=== PATIENT | male | born 1960 | race Caucasian/White ===

== ENCOUNTER 2020-08-10 12:12 | Emergency (ER) | payer MEDICARE, MEDICAID ==
[~2020-08-10] VITALS: Ht 190.5 cm; Wt 90.9 kg
[2020-08-10] MEDS ORDERED: LORazepam 2 mg/ml vial IV ONE (12:55)
[2020-08-10 13:16] LABS: BASOPHILS # (AUTO) 0.1 X10'3 (0-0.2); BASOPHILS % (AUTO) 0.4 % (0-1); EOSINOPHILS % (AUTO) 0.1 % (0-6); HEMATOCRIT 40.5 % (42.0-52.0); HEMOGLOBIN 13.6 g/dl (14.0-17.9); LYMPHOCYTES # (AUTO) 1.4 X10'3 (1.1-4.8); MEAN CORPUSCULAR HEMOGLOBIN 29.7 PG (27.0-31.0); MEAN CORPUSCULAR HGB CONC 33.6 g/dL (33.0-36.5); MEAN CORPUSCULAR VOLUME 88.6 FL (78-98); MEAN PLATELET VOLUME 10.6 FL (7.4-10.4); MONOCYTES % (AUTO) 8.4 % (2-12); NEUTROPHILS # (AUTO) 9.2 X10'3 (1.8-7.7); NEUTROPHILS % (AUTO) 79.1 % (42-75); PLATELET COUNT 150 X10'3 (140-440); RED BLOOD COUNT 4.57 X10'6 (4.70-6.10); RED CELL DISTRIBUTION WIDTH 13.7 % (11.5-14.5); WHITE BLOOD COUNT 11.7 X10'3 (4.5-11.0)
[2020-08-10] MEDS ORDERED: normal saline 1000ml 1,000 ML IV ONE (13:20)
[2020-08-10 13:27] LABS: ALANINE AMINOTRANSFERASE 121 U/L (12-78); ALBUMIN 3.9 G/DL (3.4-5.0); ALBUMIN/GLOBULIN RATIO 1.4 (1.1-1.5); ALKALINE PHOSPHATASE 43 IU/L (46-116); ANION GAP 14 (8-16); ASPARTATE AMINO TRANSFERASE 236 U/L (10-37); BILIRUBIN,TOTAL 0.9 MG/DL (0.1-1.0); BLOOD UREA NITROGEN 43 MG/DL (7-18); BUN/CREATININE RATIO 25.9 (5.4-32.0); CALCIUM 8.2 MG/DL (8.5-10.1); CHLORIDE 101 MMOL/L (99-107); CREATININE 1.66 MG/DL (0.60-1.10); GLUCOSE 112 MG/DL (70-104); POTASSIUM 3.4 MMOL/L (3.5-5.1); SODIUM 137 MMOL/L (135-145); TOTAL CARBON DIOXIDE 21.9 MMOL/L (24-32); TOTAL PROTEIN 6.6 G/DL (6.4-8.2); eGFR 42 ML/MIN
[2020-08-10] MEDS ORDERED: ATOR20TA66 PO (13:40)
[2020-08-10] MEDS ORDERED: LEVO88TA2 PO (13:40)
[2020-08-10] MEDS ORDERED: OXYC10TA47 PO (13:40)
[2020-08-10] MEDS ORDERED: ALBU8.5H8 INH (13:40)
[2020-08-10] MEDS ORDERED: normal saline 1000ML IV soln IVB ONE (13:55)
[2020-08-10 15:16] VITALS: BP 101/52
== END 2020-08-10 16:06 | disposition home or self-care (01) ==
LOC: ER 12:12
DX: G40.409 Other generalized epilepsy and epileptic syndromes, not intractable, without status epilepticus (principal); E86.0 Dehydration; E03.9 Hypothyroidism, unspecified; Z86.69 Personal history of other diseases of the nervous system and sense organs; Z88.0 Allergy status to penicillin; Z79.899 Other long term (current) drug therapy
CPT/HCPCS: 36415; 71045; 80053; 85025; 96361; 96374; 99284; J2060; J7030

== ENCOUNTER 2023-01-08 16:41 | Inpatient (IN) | payer MEDICARE, MEDICAID ==
[~2023-01-08] VITALS: Ht 182.9 cm; Wt 95.0 kg
[~2023-01-08 16:41] MED LIST: ALBU8.5H17 INH; ATOR20TA66 PO; LEVO88TA2 PO; OXYC10TA47 PO
[2023-01-08] MEDS ORDERED: normal saline 1000ML IV soln IVB ONE ×2 (17:50→19:05)
[2023-01-08] MEDS: buprenorphine/naloxone 8MG-2MG SUBlingual film SL SCH (18:54)
[2023-01-08] MEDS ORDERED: buprenorphine/naloxone 8MG-2MG SUBlingual film SL STA (18:58)
[2023-01-08 18:59] LABS: ALANINE AMINOTRANSFERASE 32 U/L (12-78); ALBUMIN 4.3 G/DL (3.4-5.0); ALBUMIN/GLOBULIN RATIO 1.6 (1.1-1.5); ALKALINE PHOSPHATASE 47 IU/L (46-116); ANION GAP 9 (8-16); ASPARTATE AMINO TRANSFERASE 35 U/L (10-37); BILIRUBIN,TOTAL 0.8 MG/DL (0.1-1.0); BLOOD UREA NITROGEN 11 MG/DL (7-18); BUN/CREATININE RATIO 9.2 (10.0-20.0); CHLORIDE 101 MMOL/L (99-107); CREATININE 1.19 MG/DL (0.60-1.10); GLUCOSE 120 MG/DL (70-104); MAGNESIUM 2.9 MG/DL (1.5-2.4); POTASSIUM 3.4 MMOL/L (3.5-5.1); SODIUM 134 MMOL/L (135-145); eCRCL 70 ML/MIN; eGFR 62 ML/MIN
[2023-01-08 19:00] LABS: MEAN CORPUSCULAR HGB CONC 33.6 g/dL (33.0-36.5)
[2023-01-08 19:04] LABS: BASOPHILS % (AUTO) 0.1 % (0-1); EOSINOPHILS % (AUTO) 0 % (0-6); HEMATOCRIT 41.7 % (42.0-52.0); LYMPHOCYTES # (AUTO) 1.3 X10'3 (1.1-4.8); LYMPHOCYTES % (AUTO) 6.5 % (21-51); MEAN CORPUSCULAR HEMOGLOBIN 29.5 PG (27.0-31.0); MEAN CORPUSCULAR VOLUME 87.6 FL (78-98); MEAN PLATELET VOLUME 10.7 FL (7.4-10.4); MONOCYTES # (AUTO) 0.8 X10'3 (0-0.9); MONOCYTES % (AUTO) 4.2 % (2-12); NEUTROPHILS # (AUTO) 17.8 X10'3 (1.8-7.7); NEUTROPHILS % (AUTO) 89.2 % (42-75); PLATELET COUNT 173 X10'3 (140-440); RED BLOOD COUNT 4.76 X10'6 (4.70-6.10); RED CELL DISTRIBUTION WIDTH 14.7 % (11.5-14.5); WHITE BLOOD COUNT 19.9 X10'3 (4.5-11.0)
[2023-01-08] MEDS ORDERED: diphenhydrAMINE 25mg capsule PO ONE (19:15)
[2023-01-08] MEDS ORDERED: OLANZapine 5mg rapidly disint. tablet PO ONE (19:15)
[2023-01-08 19:23] LABS: CALCIUM 8.8 MG/DL (8.5-10.1)
[2023-01-08] MEDS ORDERED: iohexol 300mg/ml 100ml inj. ONE (20:25)
[2023-01-08] MEDS ORDERED: LORazepam 2 mg/ml vial IM ONE (20:30)
[2023-01-08] MEDS ORDERED: OLANZapine **IM** 10 mg inj. IM ONE (20:30)
[2023-01-08] MEDS ORDERED: diphenhydrAMINE 50 mg/ml inj IM ONE (20:30)
[2023-01-09] MEDS ORDERED: normal saline 1000ML IV soln IV ONE
[2023-01-09] MEDS ORDERED: ringers solution, lacted 1,000 ML IV ONE (00:05)
[2023-01-09 02:03] LABS: CKMB RELATIVE INDEX 0.8 RATIO (0-2.5); CREATINE KINASE MB 8.6 ng/ml (0.3-3.6); THYROID STIMULATING HORMONE 2.72 ulU/ml (0.34-4.50)
[2023-01-09] MEDS ORDERED: GABA-535 PO (02:23)
[2023-01-09 02:27] LABS: CREATINE KINASE 1122 U/L (39-308)
[2023-01-09 03:03] LABS: URINE AMPHETAMINE SCREEN NEGATIVE (Neg); URINE BARBITUATE SCREEN NEGATIVE (Neg); URINE BENZODIAZEPINES SCREEN NEGATIVE (Neg); URINE CANNABINOID SCREEN POSITIVE (Neg); URINE COCAINE SCREEN NEGATIVE (Neg); URINE METHADONE SCREEN NEGATIVE (Neg); URINE OPIATE SCREEN NEGATIVE (Neg); URINE PHENCYCLIDINE SCREEN NEGATIVE (Neg)
[2023-01-09] MEDS ORDERED: aztreonam inj. 1,000 MG in normal saline 100ml IV soln 100 ML IV SCH (03:04)
[2023-01-09] MEDS ORDERED: vancomycin/NS 1 GM ADD-VANTAGE 250 ML IV SCH (03:05)
[2023-01-09 03:18] LABS: BILIRUBIN,URINE NEGATIVE (Neg); CLARITY,URINE CLEAR (Clear); COLOR,URINE YELLOW (Yellow); GLUCOSE, URINE NEGATIVE (Neg); KETONES,URINE 40 mg/dl (Neg); LEUKOCYTE ESTERASE ,URINE NEGATIVE (Neg); NITRITES, URINE NEGATIVE (Neg); OCCULT BLOOD,URINE TRACE-INTACT (Neg); PROTEIN,URINE NEGATIVE (Neg); UROBILINOGEN,URINE 0.2 E.U/dL (0.2-1.0)
[2023-01-09 03:19] LABS: UA COLLECTION TYPE CLN CATCH MIDSTREAM
[2023-01-09] MEDS ORDERED: mag hydrox/Alum hydrox/simeth 30ml oral suspension PO PRN (03:20)
[2023-01-09] MEDS ORDERED: potassium Cl 20 mEq SR tablet PO PRN (03:20)
[2023-01-09] MEDS ORDERED: magnesium 2GM in 50ml NS 50 ML IV PRN (03:20)
[2023-01-09] MEDS ORDERED: ondansetron/PF 4mg/2ml inj IV PRN (03:20)
[2023-01-09] MEDS ORDERED: magnesium hydroxide 30ml (MOM) UD suspension PO PRN (03:20)
[2023-01-09] MEDS ORDERED: magnesium Cl slow-release 64mg tablet PO PRN (03:20)
[2023-01-09] MEDS ORDERED: magnesium 4gm in 100ml NS 100 ML IV PRN (03:20)
[2023-01-09] MEDS ORDERED: potassium Cl 40MEQ/1/2NS 520ml 520 ML IV PRN (03:20)
[2023-01-09 03:36] LABS: BACTERIA,URINE NONE SEEN /HPF (Neg); MUCUS STRANDS NONE SEEN /LPF (Neg); RBC,URINE 0-2 /HPF (0-2); SQUAMOUS EPITHELIAL CELL,UR NONE SEEN /LPF (FEW); WBC,URINE NONE SEEN /HPF (0-4)
[2023-01-09 03:37] LABS: SPERM FEW /HPF (NEGATIVE)
[2023-01-09] MEDS: normal saline 1000ml 1,000 ML IV SCH ×3 (04:39→23:54)
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
--- NOTE | 2023-01-09 05:27 | NUR ---
REFUSED AM VS MD AND CRN AWARE. PT IS ALERT, WITH PINK COLOR NAD NOTED RR EVEN AND NON-LABORED. WILL CONT TO MONITOR.
[2023-01-09 07:44] LABS: MAGNESIUM 1.8 MG/DL (1.5-2.4)
[2023-01-09] MEDS: docusate sod 100mg capsule PO SCH ×2 (08:00→20:00)
[2023-01-09] MEDS ORDERED: buprenorphine/naloxone 8MG-2MG SUBlingual film SL SCH (08:00)
[2023-01-09 08:19] LABS: POTASSIUM 2.8 MMOL/L (3.5-5.1)
--- NOTE | 2023-01-09 08:30 | NUR ---
PT PLACED ON HOSPITAL BED.
[2023-01-09] MEDS: K and/or MAG REPLACEMENT MC SCH ×2 (09:05→20:00)
[2023-01-09] MEDS: gabapentin 400mg capsule PO SCH (09:05)
[2023-01-09] MEDS: atorvastatin 20mg tablet PO SCH (09:05)
[2023-01-09] MEDS: heparin, porcine 5000 units/ml vial SQ SCH ×2 (09:05→21:49)
[2023-01-09] MEDS: levoTHYROXINE 88mcg tablet PO SCH (09:20)
--- NOTE | 2023-01-09 09:20 | NUR ---
PT REFUSING MEDICATIONS HEPARIN AND BUPRENORPHINE. HOSPITALIST DR. RAFAEL QUINN MD CAME TO PT ROOM AND INFORMED OF PT REFUSAL OF MEDS. NO NEW ORDERS.
[2023-01-09] MEDS: acetaminophen 325mg tablet PO PRN ×2 (09:22→23:50)
[2023-01-09] MEDS: buprenorphine/naloxone 8MG-2MG SUBlingual film SL SCH (09:55)
--- NOTE | 2023-01-09 13:05 | NUR ---
Received order for consult. Met with patient in regards to narcatic withdrawl and to see if patient was interested in resources for treatment options. Patient has been taking medication as prescribed by his physican. Patient is unaware to why he is in the hospital and why he was given Suboxone. I spoke with RN and patient was ordered Suboxone by ER Doctor last night. RN looked at his prescribed medicaton and patient is prescribed pain medication. RN is going to speak to Hospitalist to DC Suboxone and cont with home medication.
--- NOTE | 2023-01-09 13:14 | NUR ---
Pts father Eder Jain called and left contact #:
--- NOTE | 2023-01-09 14:50 | NUR ---
LATE ENTRY FOR 904 PT RECEIVED 40 MEQ K-DUR PO PTS K 2.8. SCANNED MED WAS NOT SAVED THUS NOT SHOWN ON EMR.
[2023-01-09] MEDS: potassium Cl 20 mEq SR tablet PO PRN ×2 (14:52→21:49)
--- NOTE | 2023-01-09 16:35 | NUR ---
REPORT ATTEMPTED, WILL CALL BACK IN 10-15MIN TO GIVE REPORT TO CELESTE.
--- NOTE | 2023-01-09 16:51 | NUR ---
Report given to Edwina RN, pt assigned bed 5662c
--- NOTE | 2023-01-09 16:55 | NUR ---
Patient in room ED 13. I have received report from Tori RN and had the opportunity to ask questions and awaiting patient arrival
[2023-01-09 18:40] VITALS: O2SAT 96
--- NOTE | 2023-01-09 18:43 | NUR ---
patient orientated to room, appears calm and compliant. Report given to Manohar AMARO
--- NOTE | 2023-01-09 19:05 | NUR ---
Received pt report from Edwina HERNÁNDEZ and assumed pt care
[2023-01-09] MEDS ORDERED: buprenorphine/naloxone 8MG-2MG SUBlingual film SL ONE (21:25)
[2023-01-09 22:00] VITALS: BP 129/88; PULSE 91; RESP 16; TEMP 100.1; O2SAT 97
[2023-01-10] MEDS: potassium Cl 20 mEq SR tablet PO PRN (02:07)
[2023-01-10 02:28] VITALS: BP 148/72; TEMP 98
[2023-01-10 06:00] VITALS: BP 132/73; PULSE 67; RESP 16; TEMP 98.1; O2SAT 97
[2023-01-10] MEDS ORDERED: vancomycin/NS 1 GM ADD-VANTAGE 250 ML IV SCH ×2 (06:00→20:00)
--- NOTE | 2023-01-10 06:02 | NUR ---
SOFTWARE MANAGER documentation: I have reviewed and agree with assessment performed and documented by MICKEY.
--- NOTE | 2023-01-10 06:15 | NUR ---
Report to Kamryn AMARO
--- NOTE | 2023-01-10 06:25 | NUR ---
Patient in room ORTHO 4009. I have received report from Alicia HERNÁNDEZ and had the opportunity to ask questions and assume patient care.
[2023-01-10 06:32] LABS: BASOPHILS # (AUTO) 0.1 X10'3 (0-0.2); BASOPHILS % (AUTO) 0.4 % (0-1); EOSINOPHILS # (AUTO) 0.1 X10'3 (0-0.9); EOSINOPHILS % (AUTO) 0.7 % (0-6); HEMATOCRIT 32.5 % (42.0-52.0); HEMOGLOBIN 10.9 g/dl (14.0-17.9); LYMPHOCYTES # (AUTO) 2.3 X10'3 (1.1-4.8); LYMPHOCYTES % (AUTO) 19.8 % (21-51); MEAN CORPUSCULAR HEMOGLOBIN 29.8 PG (27.0-31.0); MEAN CORPUSCULAR HGB CONC 33.6 g/dL (33.0-36.5); MEAN CORPUSCULAR VOLUME 88.7 FL (78-98); MEAN PLATELET VOLUME 10.8 FL (7.4-10.4); MONOCYTES % (AUTO) 8.3 % (2-12); NEUTROPHILS # (AUTO) 8.2 X10'3 (1.8-7.7); NEUTROPHILS % (AUTO) 70.8 % (42-75); PLATELET COUNT 117 X10'3 (140-440); RED BLOOD COUNT 3.67 X10'6 (4.70-6.10); RED CELL DISTRIBUTION WIDTH 14.6 % (11.5-14.5); WHITE BLOOD COUNT 11.6 X10'3 (4.5-11.0)
[2023-01-10 06:58] LABS: ALANINE AMINOTRANSFERASE 30 U/L (12-78); ALBUMIN 2.9 G/DL (3.4-5.0); ALBUMIN/GLOBULIN RATIO 1.2 (1.1-1.5); ALKALINE PHOSPHATASE 33 IU/L (46-116); ANION GAP 6 (8-16); ASPARTATE AMINO TRANSFERASE 55 U/L (10-37); BILIRUBIN,TOTAL 0.7 MG/DL (0.1-1.0); BLOOD UREA NITROGEN 9 MG/DL (7-18); BUN/CREATININE RATIO 10.3 (10.0-20.0); CALCIUM 7.2 MG/DL (8.5-10.1); CHLORIDE 104 MMOL/L (99-107); CREATININE 0.87 MG/DL (0.60-1.10); GLUCOSE 87 MG/DL (70-104); MAGNESIUM 1.9 MG/DL (1.5-2.4); SODIUM 133 MMOL/L (135-145); TOTAL CARBON DIOXIDE 23.5 MMOL/L (24-32); TOTAL PROTEIN 5.3 G/DL (6.4-8.2); eCRCL 95 ML/MIN; eGFR 89 ML/MIN
[2023-01-10 07:21] LABS: CREATINE KINASE 4501 U/L (39-308)
[2023-01-10 08:00] VITALS: RESP 16; O2SAT 97
[2023-01-10] MEDS: K and/or MAG REPLACEMENT MC SCH ×2 (08:00→20:00)
[2023-01-10] MEDS: gabapentin 400mg capsule PO SCH (08:06)
[2023-01-10] MEDS: atorvastatin 20mg tablet PO SCH (08:06)
[2023-01-10] MEDS: docusate sod 100mg capsule PO SCH ×2 (08:06→21:11)
[2023-01-10] MEDS: buprenorphine/naloxone 8MG-2MG SUBlingual film SL SCH (08:10)
[2023-01-10] MEDS: heparin, porcine 5000 units/ml vial SQ SCH ×2 (08:10→21:12)
[2023-01-10 08:15] VITALS: RESP 16; O2SAT 97
[2023-01-10] MEDS: levoTHYROXINE 88mcg tablet PO SCH (08:27)
[2023-01-10 10:00] VITALS: BP 143/63; PULSE 83; RESP 16; TEMP 98.3; O2SAT 98
--- NOTE | 2023-01-10 10:49 | NUR ---
Talked to Dr. betts about this patient. She is wanting Dr. Cano to consult on this patient. SHe advised that I call his office and inquire about that. She is ialso wanting a SS consult. She okayed patient to have ensure with meals.
--- NOTE | 2023-01-10 12:15 | NUR ---
PAGER ID: [phone] MESSAGE: [id number]- Bertha Jain- pt states his shoulders really hurt him. No pain meds in emar. Pls advise? Magnus doran [id number]
--- NOTE | 2023-01-10 12:26 | NUR ---
PAGER ID: [phone] MESSAGE: [id number]- Bertha Jain: pt shoulder are painful. Pls advise? RAMONA Harry [phone]
--- NOTE | 2023-01-10 13:37 | NUR ---
Patient dtr Inocencia came to visit her dad and patient agreed that we are able to talk to her regarding his visit. She is not to make any life decisions for him. He will remain in control over any decisions that would need to be made. Patient ex- called and stated that this patient does have seizures and he lives alone. She states that the patient never told his PCP. Patient had seizure two years ago and then had a seizure last year. Patient was diagnosed in [facility] with Schizophrenia. Patient told family that he no longer needs to take his schizophrenia medication. Ex- is concerned for patient. Patient made it clear that he doesn't want us to tell her anything about him.
--- NOTE | 2023-01-10 17:30 | NUR ---
I have reviewed and agree with interventions, assessments, and documentation by Kamryn Vale LVN.
[2023-01-10] MEDS: acetaminophen 325mg tablet PO PRN (17:58)
[2023-01-10] MEDS: lactose-reduced food (Ensure Enlive) - 237ml bottle PO SCH ×2 (18:00→19:00)
--- NOTE | 2023-01-10 18:39 | NUR ---
Problems reprioritized. Patient report given, questions answered & plan of care reviewed with Evette Alas RN.
--- NOTE | 2023-01-10 18:45 | NUR ---
Patient in room ORTHO 4009. I have received report from SELENA AMARO and had the opportunity to ask questions and assume patient care.
[2023-01-10] MEDS: normal saline 1000ml 1,000 ML IV SCH ×2 (19:20→19:30)
[2023-01-10] MEDS: VANCOmycin 1250MG/NS 250ml Bag 250 ML IV SCH (19:37)
[2023-01-10 20:00] VITALS: RESP 16; O2SAT 98
[2023-01-11] VITALS (7 sets, daily range): BP systolic 138–167; BP diastolic 68–88; PULSE 82–87; RESP 12–18; TEMP 97.7–98.7; O2SAT 92–98
[2023-01-11] MEDS: acetaminophen 325mg tablet PO PRN ×3 (03:05→17:50)
[2023-01-11] MEDS: normal saline 1000ml 1,000 ML IV SCH ×3 (05:20→20:08)
[2023-01-11 06:05] LABS: BASOPHILS % (AUTO) 0.4 % (0-1); EOSINOPHILS # (AUTO) 0.1 X10'3 (0-0.9); EOSINOPHILS % (AUTO) 0.6 % (0-6); HEMATOCRIT 31.6 % (42.0-52.0); HEMOGLOBIN 10.7 g/dl (14.0-17.9); LYMPHOCYTES # (AUTO) 1.6 X10'3 (1.1-4.8); LYMPHOCYTES % (AUTO) 16.9 % (21-51); MEAN CORPUSCULAR HEMOGLOBIN 29.8 PG (27.0-31.0); MEAN CORPUSCULAR HGB CONC 33.8 g/dL (33.0-36.5); MEAN PLATELET VOLUME 9.9 FL (7.4-10.4); MONOCYTES # (AUTO) 0.9 X10'3 (0-0.9); MONOCYTES % (AUTO) 9.1 % (2-12); PLATELET COUNT 120 X10'3 (140-440); RED BLOOD COUNT 3.59 X10'6 (4.70-6.10); RED CELL DISTRIBUTION WIDTH 14.2 % (11.5-14.5); WHITE BLOOD COUNT 9.6 X10'3 (4.5-11.0)
--- NOTE | 2023-01-11 06:10 | NUR ---
Patient in room ORTHO 4009. I have received report from Delaney HERNÁNDEZ and had the opportunity to ask questions and assume patient care.
--- NOTE | 2023-01-11 06:13 | NUR ---
Problems reprioritized. Patient report given, questions answered & plan of care reviewed with SELENA AMARO.
[2023-01-11 06:26] LABS: ALANINE AMINOTRANSFERASE 40 U/L (12-78); ALBUMIN 2.8 G/DL (3.4-5.0); ALKALINE PHOSPHATASE 33 IU/L (46-116); ANION GAP 6 (8-16); ASPARTATE AMINO TRANSFERASE 86 U/L (10-37); BILIRUBIN,TOTAL 0.6 MG/DL (0.1-1.0); BLOOD UREA NITROGEN 6 MG/DL (7-18); BUN/CREATININE RATIO 7.1 (10.0-20.0); CALCIUM 7.5 MG/DL (8.5-10.1); CHLORIDE 102 MMOL/L (99-107); CREATININE 0.85 MG/DL (0.60-1.10); GLUCOSE 102 MG/DL (70-104); MAGNESIUM 2.1 MG/DL (1.5-2.4); SODIUM 133 MMOL/L (135-145); TOTAL CARBON DIOXIDE 24.6 MMOL/L (24-32); TOTAL PROTEIN 5.6 G/DL (6.4-8.2); eCRCL 98 ML/MIN; eGFR > 90 ML/MIN
[2023-01-11] MEDS: levoTHYROXINE 88mcg tablet PO SCH (07:42)
[2023-01-11] MEDS: gabapentin 400mg capsule PO SCH (07:42)
[2023-01-11] MEDS: atorvastatin 20mg tablet PO SCH (07:42)
[2023-01-11] MEDS: docusate sod 100mg capsule PO SCH (07:42)
[2023-01-11] MEDS: buprenorphine/naloxone 8MG-2MG SUBlingual film SL SCH (07:43)
[2023-01-11] MEDS: heparin, porcine 5000 units/ml vial SQ SCH ×2 (07:45→19:40)
[2023-01-11] MEDS: K and/or MAG REPLACEMENT MC SCH ×2 (08:00→19:40)
[2023-01-11] MEDS: lactose-reduced food (Ensure Enlive) - 237ml bottle PO SCH ×3 (08:00→18:48)
--- NOTE | 2023-01-11 08:00 | NUR ---
Patient did refuse his suboxone and states that he doesn't want to take this medication any more
[2023-01-11] MEDS: VANCOmycin 1250MG/NS 250ml Bag 250 ML IV SCH ×2 (10:37→20:09)
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
[2023-01-11 13:26] LABS: CREATINE KINASE 8606 U/L (39-308)
--- NOTE | 2023-01-11 17:30 | NUR ---
I have reviewed and agree with interventions, assessments, and documentation by Kamryn Vale LVN.
--- NOTE | 2023-01-11 20:00 | NUR ---
Student documentation: I have reviewed and agree with assessments performed by Kamryn Espinosa.
[2023-01-11 23:06] LABS: BILIRUBIN,URINE NEGATIVE (Neg); CLARITY,URINE CLEAR (Clear); COLOR,URINE YELLOW (Yellow); GLUCOSE, URINE NEGATIVE (Neg); KETONES,URINE TRACE mg/dl (Neg); LEUKOCYTE ESTERASE ,URINE NEGATIVE (Neg); NITRITES, URINE NEGATIVE (Neg); OCCULT BLOOD,URINE TRACE-INTACT (Neg); PH,URINE 6.5 (4.8-8.0); PROTEIN,URINE NEGATIVE (Neg); UROBILINOGEN,URINE 0.2 E.U/dL (0.2-1.0)
[2023-01-11 23:16] LABS: UA COLLECTION TYPE CLN CATCH MIDSTREAM
[2023-01-11 23:23] LABS: BACTERIA,URINE NONE SEEN /HPF (Neg); RBC,URINE 0-2 /HPF (0-2); SQUAMOUS EPITHELIAL CELL,UR NONE SEEN /LPF (FEW); WBC,URINE 0-4 /HPF (0-4)
[2023-01-12] MEDS: normal saline 1000ml 1,000 ML IV SCH ×2 (00:44→10:41)
--- NOTE | 2023-01-12 01:43 | NUR ---
Patient compartment syndrome measurements on right shoulder was taken to best of of my abilities. Was able to measure bicep circumference which was 46.
[2023-01-12] MEDS: acetaminophen 325mg tablet PO PRN ×3 (02:07→13:56)
--- NOTE | 2023-01-12 02:20 | NUR ---
Patient in room ORTHO 4009. I have received report from Kamryn and had the opportunity to ask questions and assume patient care.
--- NOTE | 2023-01-12 02:54 | NUR ---
Problems reprioritized. Patient report given, questions answered & plan of care reviewed with Melisa Leach RN.
[2023-01-12 06:00] VITALS: BP 174/77; PULSE 79; RESP 16; TEMP 97.6; O2SAT 99
[2023-01-12 06:01] LABS: BASOPHILS % (AUTO) 0.4 % (0-1); EOSINOPHILS # (AUTO) 0.1 X10'3 (0-0.9); EOSINOPHILS % (AUTO) 1.7 % (0-6); HEMATOCRIT 29.1 % (42.0-52.0); HEMOGLOBIN 9.9 g/dl (14.0-17.9); LYMPHOCYTES # (AUTO) 1.3 X10'3 (1.1-4.8); LYMPHOCYTES % (AUTO) 20.3 % (21-51); MEAN CORPUSCULAR HGB CONC 34.2 g/dL (33.0-36.5); MEAN CORPUSCULAR VOLUME 87.8 FL (78-98); MONOCYTES # (AUTO) 0.6 X10'3 (0-0.9); MONOCYTES % (AUTO) 9.8 % (2-12); NEUTROPHILS # (AUTO) 4.3 X10'3 (1.8-7.7); NEUTROPHILS % (AUTO) 67.8 % (42-75); PLATELET COUNT 169 X10'3 (140-440); RED BLOOD COUNT 3.31 X10'6 (4.70-6.10); RED CELL DISTRIBUTION WIDTH 14.6 % (11.5-14.5); WHITE BLOOD COUNT 6.4 X10'3 (4.5-11.0)
[2023-01-12 06:31] LABS: ALANINE AMINOTRANSFERASE 47 U/L (12-78); ALBUMIN 2.5 G/DL (3.4-5.0); ALBUMIN/GLOBULIN RATIO 0.9 (1.1-1.5); ALKALINE PHOSPHATASE 27 IU/L (46-116); ANION GAP 6 (8-16); ASPARTATE AMINO TRANSFERASE 79 U/L (10-37); BILIRUBIN,TOTAL 0.5 MG/DL (0.1-1.0); BLOOD UREA NITROGEN 6 MG/DL (7-18); BUN/CREATININE RATIO 7.6 (10.0-20.0); CALCIUM 7.7 MG/DL (8.5-10.1); CHLORIDE 103 MMOL/L (99-107); CREATININE 0.79 MG/DL (0.60-1.10); GLUCOSE 107 MG/DL (70-104); MAGNESIUM 2.1 MG/DL (1.5-2.4); POTASSIUM 3.6 MMOL/L (3.5-5.1); SODIUM 136 MMOL/L (135-145); TOTAL CARBON DIOXIDE 26.9 MMOL/L (24-32); TOTAL PROTEIN 5.4 G/DL (6.4-8.2); eCRCL 105 ML/MIN; eGFR > 90 ML/MIN
[2023-01-12 06:34] LABS: CREATINE KINASE 5446 U/L (39-308)
[2023-01-12] MEDS ORDERED: VANCOMYCIN LEVEL IV ONE ×2 (07:30→19:30)
[2023-01-12 07:33] VITALS: RESP 16; O2SAT 99
[2023-01-12] MEDS: K and/or MAG REPLACEMENT MC SCH (08:00)
[2023-01-12] MEDS: buprenorphine/naloxone 8MG-2MG SUBlingual film SL SCH (08:00)
[2023-01-12] MEDS: lactose-reduced food (Ensure Enlive) - 237ml bottle PO SCH ×2 (08:50→13:16)
[2023-01-12] MEDS: VANCOmycin 1250MG/NS 250ml Bag 250 ML IV SCH (08:54)
[2023-01-12] MEDS: gabapentin 400mg capsule PO SCH (08:55)
[2023-01-12] MEDS: atorvastatin 20mg tablet PO SCH (08:55)
[2023-01-12] MEDS: levoTHYROXINE 88mcg tablet PO SCH (08:55)
[2023-01-12] MEDS: heparin, porcine 5000 units/ml vial SQ SCH (08:56)
[2023-01-12 10:00] VITALS: BP 143/78; PULSE 80; RESP 16; TEMP 98.2; O2SAT 98
--- NOTE | 2023-01-12 15:26 | NUR ---
Reviewed discharge instructions with patient. Patient is alert, oriented and verbalized understanding. Patient was able to dress himself and gather his paperwork. Patient was wheeled downstairs by staff and accompanied by two friends who will drive the patient home.
== END 2023-01-12 15:20 | disposition home or self-care (01) | DRG 557 ==
LOC: ER 16:42 → ED HOLD 01-09 03:20 → ORTHO 4S 01-09 17:15
PROVIDERS: ADMIT Internal Medicine; ATTEND Internal Medicine
PROC: BW251ZZ Computerized Tomography (CT Scan) of Chest, Abdomen and Pelvis using Low Osmolar Contrast (ICD-10-PCS; principal; 2023-01-08)
DX: M62.82 Rhabdomyolysis (principal); N17.0 Acute kidney failure with tubular necrosis; F11.93 Opioid use, unspecified with withdrawal; S42.201A Unspecified fracture of upper end of right humerus, initial encounter for closed fracture; S42.202A Unspecified fracture of upper end of left humerus, initial encounter for closed fracture; E86.0 Dehydration; E03.9 Hypothyroidism, unspecified; E87.6 Hypokalemia; E78.5 Hyperlipidemia, unspecified; J45.909 Unspecified asthma, uncomplicated; K40.90 Unilateral inguinal hernia, without obstruction or gangrene, not specified as recurrent; D72.829 Elevated white blood cell count, unspecified; Z96.652 Presence of left artificial knee joint; F17.210 Nicotine dependence, cigarettes, uncomplicated; F29 Unspecified psychosis not due to a substance or known physiological condition; F20.9 Schizophrenia, unspecified; X58.XXXA Exposure to other specified factors, initial encounter; Y93.89 Activity, other specified; Y92.89 Other specified places as the place of occurrence of the external cause; Y99.8 Other external cause status; Z87.11 Personal history of peptic ulcer disease; Z82.0 Family history of epilepsy and other diseases of the nervous system; Z88.0 Allergy status to penicillin; Z91.012 Allergy to eggs
CPT/HCPCS: 36415; 70450; 71260; 73200; 74177; 80053; 80305; 81001; 82550; 82553; 83605; 83735; 83874; 84132; 84145; 84443; 84484; 85025; 85651; 87040; 87077; 87081; 87186; 99285; A4565; G0378; J1200; J1644; J2060; J3370; J3490; J7030; J7120; Q9967